=== PATIENT | male | born 1985 | race American Indian/Alaskan Native ===

== ENCOUNTER 2018-05-25 14:11 | Emergency (ER) | payer SELFPAY ==
--- NOTE | 2018-05-25 14:41 | Emergency Department Report ---
ED Lower Extremity HPI - General Chief Complaint: Extremity Injury, Lower Stated Complaint: (L) ACHILLES TENDON Source: patient Mode of arrival: Wheelchair Limitations: No Limitations - History of Present Illness Initial Comments: Patient is a 33-year-old -[place] male who while playing basketball last night felt a popping in his Achilles tendon area of his left foot. He has not been able to bear weight since stating it hurts too bad. He states that the pain On multiple night. Denies previous injury or trauma to that foot. MD Complaint: foot injury - Related Data Previous Rx's Medication Instructions Recorded Last Taken Type traMADol [Ultram] 50 mg PO Q6HR PRN #12 tablet 05/25/18 Unknown Rx Allergies Allergy/AdvReac Type Severity Reaction Status Date / Time No Known Allergies Allergy Unverified 05/25/14 03:09 ED Review of Systems ROS: Stated complaint: (L) ACHILLES TENDON Other details as noted in HPI Comment: All other systems reviewed and negative Constitutional: denies: see HPI Eyes: denies: eye pain ENT: denies: throat pain Respiratory: denies: orthopnea Cardiovascular: denies: dyspnea on exertion Endocrine: denies: flushing Gastrointestinal: denies: nausea Genitourinary: denies: dysuria Musculoskeletal: as per HPI, other (l foot pain) Skin: denies: lesions Neurological: denies: headache Psychiatric: denies: anxiety Hematological/Lymphatic: denies: easy bleeding ED Past Medical Hx - Past Medical History Previous Medical History?: No Additional medical history: Tetanus status unknown - Surgical History Past Surgical History?: No - Family History Family history: no significant - Social History Smoking Status: Never Smoker Substance Use Type: None - Medications Home Medications: Home Medications Medication Instructions Recorded Confirmed Last Taken Type traMADol [Ultram] 50 mg PO Q6HR PRN #12 tablet 05/25/18 Unknown Rx ED Physical Exam - General Limitations: No Limitations General appearance: alert - Head Head exam: Present: atraumatic - Eye Eye exam: Present: normal appearance, PERRL Pupils: Present: normal accommodation - ENT ENT exam: Present: normal exam - Neck Neck exam: Present: normal inspection - Respiratory Respiratory exam: Present: normal lung sounds bilaterally - Cardiovascular Cardiovascular Exam: Present: regular rate - GI/Abdominal GI/Abdominal exam: Present: soft - Rectal Rectal exam: Present: deferred - Expanded Lower Extremity Exam Left Ankle exam: Present: tenderness. Absent: full ROM, swelling, abrasion, laceration, ecchymosis, deformity, crepidus, dislocation, erythema Neuro vascular tendon exam: Present: no vascular compromise Gait: Positive: unable to bear weight - Back Exam Back exam: Present: normal inspection - Neurological Exam Neurological exam: Present: alert, oriented X3, CN II-XII intact - Psychiatric Psychiatric exam: Present: normal affect, normal mood - Skin Skin exam: Present: warm, dry ED Course Vital Signs 05/25/18 05/25/18 14:17 15:54 Temperature 98.8 F Pulse Rate 99 H Respiratory 16 18 Rate Blood Pressure 156/103 O2 Sat by Pulse 100 Oximetry ED Lower Extremity MDM - Radiology Data Radiology results: report reviewed, image reviewed - Medical Decision Making xray noted some movement of foot with thompsons test but not ask brisk as non injured foot medicated for pain referral to ortho - Differential Diagnosis ro achilles tear Critical care attestation.: If time is entered above; I have spent that time in minutes in the direct care of this critically ill patient, excluding procedure time. ED Disposition Clinical Impression: Pain in Achilles tendon Disposition: DC-01 TO HOME OR SELFCARE Is pt being admited?: No Does the pt Need Aspirin: No Condition: Stable Instructions: Achilles Tendon Rupture (ED), Achilles Tendinitis (ED) Additional Instructions: splint crutches non weight bearing until seen by ortho tylenol or motrin for mild pain ultram for severe pain rest ice elevate Prescriptions: traMADol [Ultram] 50 mg PO Q6HR PRN #12 tablet PRN Reason: Pain Referrals: DANIEL FITZGERALD MD [Staff Physician] - 3-5 Days NEYDA HAYNES MD [Staff Physician] - 3-5 Days VARGAS HARRIS DPM [Staff Physician] - 3-5 Days WINIFRED CARRILLO MD [Staff Physician] - 3-5 Days ELISABET HAWKINS MD [Staff Physician] - 3-5 Days JEFFREY COLUNGA MD [Staff Physician] - 3-5 Days SADIE DOWNS MD [Staff Physician] - 3-5 Days Time of Disposition: 16:09
[2018-05-25] MEDS ORDERED: DILAUDID IM ONE (15:34)
[2018-05-25 15:39] VITALS: BP 156/103
--- NOTE | 2018-05-25 15:56 | XRay Report ---
FINAL REPORT EXAM: XR ANKLE 3+V LT [facility] COMPARISON: None. TECHNIQUE: Four views of the left ankle FINDINGS: There is normal alignment without acute fracture or dislocation. The ankle mortise is intact. The sof t tissues are intact. No radiopaque foreign body. IMPRESSION: No acute bony abnormality of the left ankle.
== END 2018-05-25 17:00 | disposition home or self-care (01) ==
LOC: ED 14:11
DX: M76.62 Achilles tendinitis, left leg (principal)
CPT/HCPCS: 73610; 96372; 99283; J1170

== ENCOUNTER 2019-01-24 13:59 | Emergency (ER) | payer SELFPAY ==
--- NOTE | 2019-01-24 14:49 | Event Note ---
ED Screening Note Date of service: 01/24/19 Time: 14:44 ED Screening Note: Patient reports that he had donated plasma yesterday and and 1.5 hours later after walking in sun got home and fell out for 6 -7 and witnessed and now with very bad headache after told hit head on concrete . Feeling dizzy . Reports drank alcohol after head hurts. Reports headache at bacjk of head and feels like pressure, vomit with abdominal pressure with pain at back of neck. Alerts and oriented x3 with GCS 15 This initial assessment/diagnostic orders/clinical plan/treatment(s) is/are subject to change based on patients health status, clinical progression and re- assessment by fellow clinical providers in the ED. Further treatment and workup at subsequent clinical providers discretion. Patient/guardian urged not to elope from the ED as their condition may be serious if not clinically assessed and managed. Initial orders include: labs.ct
[2019-01-24] MEDS ORDERED: SODIUM CHLORIDE 0.9% 1000 ML 1,000 ML IV ONE (15:25)
[2019-01-24] MEDS ORDERED: ACETAMINOPHEN 500 MG TAB PO ONE (15:39)
[2019-01-24 15:54] LABS: Basophils # (Auto) 0.1 K/mm3 (0.0-0.1); Basophils % (Auto) 0.7 % (0.0-1.8); Eosinophils % (Auto) 0.3 % (0.0-4.3); Hematocrit 49.2 % (35.5-45.6); Hemoglobin 16.4 gm/dl (11.8-15.2); Lymphocytes # (Auto) 1.8 K/mm3 (1.2-5.4); Lymphocytes % (Auto) 19.8 % (13.4-35.0); Mean Corpuscular HGB Conc 33 % (32-34); Mean Corpuscular Volume 93 fl (84-94); Monocytes # (Auto) 0.5 K/mm3 (0.0-0.8); Monocytes % (Auto) 5.5 % (0.0-7.3); Platelet Count 235 K/mm3 (140-440); Red Blood Count 5.28 M/mm3 (3.65-5.03); Red Cell Distribution Width 15.4 % (13.2-15.2)
[2019-01-24 15:59] LABS: BUN/Creatinine Ratio 9; Blood Urea Nitrogen 14 mg/dL (9-20); Calcium 9.7 mg/dL (8.4-10.2); Hemolysis Index 15
[2019-01-24 16:01] LABS: INR 1.12 (0.87-1.13)
[2019-01-24 16:02] LABS: Partial Thromboplastin Time 36.4 Sec. (24.2-36.6)
--- NOTE | 2019-01-24 16:21 | Cat Scan Report ---
CT CERVICAL SPINE: 01/24/2019 INDICATION / CLINICAL INFORMATION: neck pain after fall. COMPARISON: 05/25/2014 FINDINGS: CT images of the cervical spine were obtained. Images are evaluated in the axial, coronal, and sagit sarai planes. There is no evidence of acute abnormality. Vertebral body alignment is unremarkable. There is some minimal disc bulging present at the C3-4, C4-5, and C5-6 levels. Overall, there is been no significant change when compared to 05/25/2014. LEVEL BY LEVEL ANALYSIS: . CRANIOCERVICAL JUNCTION: Unremarkable. PARASPINAL STRUCTURES: Unremarkable IMPRESSION: No acute abnormality. All CT scans at this location are performed using dose reduction to ALARA by means of automated expos ure control. Signer Name: Jonathan Woo MD Signed: 01/24/2019 4:17 PM Workstation Name: [id number]
--- NOTE | 2019-01-24 16:41 | Emergency Department Report ---
<IFRAH DELGADO - Last Filed: 01/24/19 15:38> ED General Adult HPI - General Chief complaint: Weakness Stated complaint: POSS HEAT EXHUASTION Time Seen by Provider: 01/24/19 14:44 Source: patient Mode of arrival: Ambulatory Limitations: No Limitations - History of Present Illness Initial comments: Patient reports that he had donated plasma yesterday and and 1.5 hours later after walking in sun got home and fell out for 6 -7 minutes witnessed and now has very bad headache after told he hit his head on concrete . Feeling dizzy . Reports drank alcohol after head hurts. Reports headache at back of head and feels like pressure, feels he has loss of memory and hard to focus. Patient reports a past medical history alcohol abuse. He currently takes no medications on a daily basis and has no known drug allergies. Onset/Timin -: days(s) Location: head Severity scale (0 -10): 7 Quality: aching Consistency: constant Improves with: none - Related Data Previous Rx's Medication Instructions Recorded Last Taken Type traMADol [Ultram] 50 mg PO Q6HR PRN #12 tablet 05/25/18 Unknown Rx Allergies Allergy/AdvReac Type Severity Reaction Status Date / Time No Known Allergies Allergy Unverified 05/25/14 03:09 ED Review of Systems Comment: All other systems reviewed and negative ED Past Medical Hx - Past Medical History Previous Medical History?: Yes Additional medical history: Tetanus status unknown - Surgical History Past Surgical History?: No - Social History Smoking Status: Current Every Day Smoker Substance Use Type: Alcohol, Marijuana - Medications Home Medications: Home Medications Medication Instructions Recorded Confirmed Last Taken Type traMADol [Ultram] 50 mg PO Q6HR PRN #12 tablet 05/25/18 Unknown Rx ED Physical Exam - General Limitations: No Limitations General appearance: alert, in no apparent distress - Head Head exam: Present: atraumatic, normocephalic - Eye Eye exam: Present: normal appearance, EOMI - ENT ENT exam: Present: mucous membranes moist - Neck Neck exam: Present: full ROM. Absent: tenderness - Respiratory Respiratory exam: Present: normal lung sounds bilaterally. Absent: respiratory distress - Cardiovascular Cardiovascular Exam: Present: regular rate, normal rhythm. Absent: systolic murmur, diastolic murmur, rubs, gallop - GI/Abdominal GI/Abdominal exam: Present: soft, normal bowel sounds. Absent: distended, tenderness - Extremities Exam Extremities exam: Present: full ROM - Back Exam Back exam: Present: full ROM - Neurological Exam Neurological exam: Present: alert, oriented X3 - Expanded Neurological Exam Expanded Patient oriented to: Present: person, place, time Speech: Present: fluid speech Cranial nerves: EOM's Intact: Normal, Gag Reflex: Normal, Tongue Deviation: Normal, Nystagmus: Normal, Facial Sensation: Normal, Facial Palsy with Forehead Movement: Normal, Facial Palsy without Forehead Movement: Normal Cerebellar function: Finger to Nose: Normal, Heel to Garcia: Normal, Romberg: Normal Upper motor neuron: Danny Neglect: Normal, Pronator Drift: Normal, Sensory Extinction: Normal Sensory exam: Upper Extremity Light Touch: Normal, Upper Extremity Pin Prick: Normal, Upper Extremity Temperature: Normal, UE 2 Point Discrimination: Normal, Lower Extremity Light Touch: Normal, Lower Extremity Pin Prick: Normal, Lower Extremity Temperature: Normal, LE 2 Point Discrimination: Normal Motor strength exam: RUE: 4, LUE: 4, RLE: 4, LLE: 4 Best Eye Response ([place]): (4) open spontaneously Best Motor Response ([place]): (6) obeys commands Best Verbal Response (Emily): (5) oriented [place] Total: 15 - Psychiatric Psychiatric exam: Present: normal affect, normal mood - Skin Skin exam: Present: warm, dry, intact, normal color. Absent: rash ED Medical Decision Making - Radiology Data Radiology results: report reviewed Patient: ADRIANA ORELLANA MR#: [id number] : 1985 Acct:[id number] Age/Sex: 34 / M ADM Date: 01/24/19 Loc: ED Attending Dr: Ordering Physician: KARINA ESPARZA Date of Service: 01/24/19 Procedure(s): CT cervical spine wo con Accession Number(s): [id number] cc: KARINA ESPARZA CT CERVICAL SPINE: 01/24/2019 INDICATION / CLINICAL INFORMATION: neck pain after fall. COMPARISON: 05/25/2014 FINDINGS: CT images of the cervical spine were obtained. Images are evaluated in the axial, coronal, and sagittal planes. There is no evidence of acute abnormality. Vertebral body alignment is un remarkable. There is some minimal disc bulging present at the C3-4, C4-5, and C5-6 levels. Overall, there is been no significant change when compared to 05/25/2014. LEVEL BY LEVEL ANALYSIS: . CRANIOCERVICAL JUNCTION: Unremarkable. PARASPINAL STRUCTURES: Unremarkable IMPRESSION: No acute abnormality. All CT scans at this location are performed using dose reduction to ALARA by means of automated exposure control. Signer Name: Jonathan Woo MD Signed: 01/24/2019 4:17 PM Workstation Name: [id number] Transcribed By: NAV Dictated By: Jonathan Woo MD Electronically Authenticated By: Jonathan Woo MD Signed Date/Time: 01/24/191616 DD/ 14 TD/TT: ED Disposition Clinical Impression: Heat exhaustion, Episode of syncope Disposition: DC-01 TO HOME OR SELFCARE Condition: Stable Instructions: Heat Exhaustion (ED), Syncope (ED) Additional Instructions: Make sure to follow up with the primary care physician as discussed. Take all your medications as you've been prescribed. Make sure to increase hydration If you have any worsening symptoms or develop new symptoms please return to ED immediately. Referrals: KENDALL COHENLINCOLN MD ZI [Primary Care Provider] - 3-5 Days [facility] [Outside] - 3-5 Days [facility] [Outside] - 3-5 Days Forms: Work/School Release Form(ED) <JEROMY AGUERO - Last Filed: 01/24/19 23:30> ED Review of Systems ROS: Stated complaint: POSS HEAT EXHUASTION Other details as noted in HPI ED Course Vital Signs 01/24/19 01/24/19 01/24/19 14:01 16:00 18:16 Temperature 97.6 F 97.6 F Pulse Rate 95 H 77 75 Respiratory 18 17 Rate Blood Pressure 119/87 Blood Pressure 110/77 121/61 [Left] O2 Sat by Pulse 99 100 100 Oximetry 01/24/19 01/24/19 01/24/19 19:15 19:45 20:15 Temperature 97.9 F Pulse Rate 73 73 75 Respiratory 13 15 17 Rate Blood Pressure 113/72 123/73 Blood Pressure 110/72 [Left] O2 Sat by Pulse 100 99 99 Oximetry 01/24/19 20:31 Temperature Pulse Rate 78 Respiratory 20 Rate Blood Pressure 123/73 Blood Pressure [Left] O2 Sat by Pulse 99 Oximetry - Reevaluation(s) Reevaluation #1: 01/24/19 20:19 Patient is laying on ED bed comfortably with no distress. Patient is currently eating dinner. Patient's reports he is feeling better and vital signs are stable. CT scan still pending. ED Medical Decision Making - Lab Data Result diagrams: 01/24/19 15:24 01/24/19 15:24 Laboratory Last Values WBC 9.3 K/mm3 (4.5-11.0) 01/24/19 15:24 RBC 5.28 M/mm3 (3.65-5.03) H 01/24/19 15:24 Hgb 16.4 gm/dl (11.8-15.2) H 01/24/19 15:24 Hct 49.2 % (35.5-45.6) H 01/24/19 15:24 MCV 93 fl (84-94) 01/24/19 15:24 MCH 31 pg (28-32) 01/24/19 15:24 MCHC 33 % (32-34) 01/24/19 15:24 RDW 15.4 % (13.2-15.2) H 01/24/19 15:24 Plt Count 235 K/mm3 (140-440) 01/24/19 15:24 Lymph % (Auto) 19.8 % (13.4-35.0) 01/24/19 15:24 Leon % (Auto) 5.5 % (0.0-7.3) 01/24/19 15:24 Eos % (Auto) 0.3 % (0.0-4.3) 01/24/19 15:24 Baso % (Auto) 0.7 % (0.0-1.8) 01/24/19 15:24 Lymph # 1.8 K/mm3 (1.2-5.4) 01/24/19 15:24 Leon # 0.5 K/mm3 (0.0-0.8) 01/24/19 15:24 Eos # 0.0 K/mm3 (0.0-0.4) 01/24/19 15:24 Baso # 0.1 K/mm3 (0.0-0.1) 01/24/19 15:24 Seg Neutrophils % 73.7 % (40.0-70.0) H 01/24/19 15:24 Seg Neutrophils # 6.9 K/mm3 (1.8-7.7) 01/24/19 15:24 PT 14.1 Sec. (12.2-14.9) 01/24/19 15:24 INR 1.12 (0.87-1.13) 01/24/19 15:24 APTT 36.4 Sec. (24.2-36.6) 01/24/19 15:24 Sodium 146 mmol/L (137-145) H 01/24/19 15:24 Potassium 4.7 mmol/L (3.6-5.0) 01/24/19 15:24 Chloride 105.1 mmol/L (98-107) 01/24/19 15:24 Carbon Dioxide 25 mmol/L (22-30) 01/24/19 15:24 Anion Gap 21 mmol/L 01/24/19 15:24 BUN 14 mg/dL (9-20) 01/24/19 15:24 Creatinine 1.5 mg/dL (0.8-1.5) 01/24/19 15:24 Estimated GFR > 60 ml/min 01/24/19 15:24 BUN/Creatinine Ratio 9 % 01/24/19 15:24 Glucose 68 mg/dL (75-100) L 01/24/19 15:24 Calcium 9.7 mg/dL (8.4-10.2) 01/24/19 15:24 - EKG Data EKG shows normal: sinus rhythm Rate: normal - Radiology Data CT head/brain wo con INDICATION / CLINICAL INFORMATION: fall with N/V and MAE. TECHNIQUE: Axial CT imaging of the brain was obtained without contrast. Coronal and sagittal reformatted imaging obtained and reviewed. All CT scans at this location are performed using CT dose reduction for ALARA by means of automated exposure control. COMPARISON: Prior head CT, 05/25/2014 FINDINGS: No intracranial hemorrhage, mass, or midline shift. No extra-axial fluid collection or suggestion of acute territorial infarct. Ventricular system and basilar cisterns are unremarkable. Visualized paranasal sinuses and mastoid air cells are well aerated and clear. No calvarial fracture. IMPRESSION: 1. No acute intracranial abnormality. Signer Name: Shannon Timmons MD Signed: 01/24/2019 8:16 PM Workstation Name: [id number] Transcribed By: JR Dictated By: Shannon Timmons MD Electronically Authenticated By: Shannon Timmons MD Signed Date/Time: 01/24/192015 - Medical Decision Making This 34-year-old male who presents with most likely syncopal episode from heat exhaustion. All labs are within normal limits. Patient had no episodes during the ED stay. Patient received IV fluids in the ED. Patient also received IVF is resting comfortably. EKG shows normal findings. Patient is not exhibiting any neuro deficit. Speaking in clear sentences and understands instructions. CT scan of cervical spine as well as CT scan of the head shows no abnormal findings. He did not exhibit any loss of memory and alert and oriented 3 Discussed findings with the patient. I discussed with the patient to follow-up with a primary care physician. Pt Vital signs are stable and he is in no acute distress. Patient states understanding instructions and will follow-up. Critical care attestation.: If time is entered above; I have spent that time in minutes in the direct care of this critically ill patient, excluding procedure time. ED Disposition Is pt being admited?: No Does the pt Need Aspirin: No Time of Disposition: 20:26 (with 1)
--- NOTE | 2019-01-24 20:20 | Cat Scan Report ---
CT head/brain wo con INDICATION / CLINICAL INFORMATION: fall with N/V and MAE. TECHNIQUE: Axial CT imaging of the brain was obtained without contrast. Coronal and sagittal reformatted imaging obtained and reviewed. All CT scans at this location are performed using CT dose reduction for ALAPete A by means of automated exposure control. COMPARISON: Prior head CT, 05/25/2014 FINDINGS: No intracranial hemorrhage, mass, or midline shift. No extra-axial fluid collection or suggestion of acute territorial infarct. Ventricular system and basilar cisterns are unremarkable. Visualized paranasal sinuses and mastoid air cells are well aerated and clear. No calvarial fracture. IMPRESSION: 1. No acute intracranial abnormality. Signer Name: Shannon Timmons MD Signed: 01/24/2019 8:16 PM Workstation Name: [id number]
[2019-01-24 21:06] VITALS: BP 123/73
== END 2019-01-24 21:05 | disposition home or self-care (01) ==
LOC: ED 13:59
DX: T67.5XXA Heat exhaustion, unspecified, initial encounter (principal); R55 Syncope and collapse; F17.200 Nicotine dependence, unspecified, uncomplicated; F12.90 Cannabis use, unspecified, uncomplicated; Z98.890 Other specified postprocedural states; X58.XXXA Exposure to other specified factors, initial encounter; Y93.89 Activity, other specified; Y92.89 Other specified places as the place of occurrence of the external cause; Y99.8 Other external cause status
CPT/HCPCS: 36415; 70450; 72125; 80048; 85025; 85610; 85730; 93005; 93010; 96360; 99284; J7030